=== PATIENT | male | born 1985 | race Hispanic/Latino ===

== ENCOUNTER 2017-08-21 22:58 | Emergency (ER) | payer OTHER ==
[2017-08-21 23:19] VITALS: BP 145/88; PULSE 86; RESP 17; TEMP 97.6; O2SAT 95
[2017-08-22] MEDS ORDERED: Lidocaine 2% Inj (20ml) ONE (02:21)
[2017-08-22] MEDS ORDERED: Lidocaine 2% Inj (20ml) INFIL ONE (02:21)
--- NOTE | 2017-08-22 02:40 | ED PDOC ---
Upper Extremity Pain/Injury Time Seen by Provider: 08/22/17 02:37 Chief Complaint (Nursing): Finger,Hand,&Wrist Chief Complaint (Provider): finger laceration History Per: Patient (32 y/o male here with laceration left index finger that occurred with serrated knife. Notes moderate pain but bleeding stopped 2 hours after injury. Tetanus up to date 8 months ago. Patient is right hand dominant.) Past Medical History Reviewed: Historical Data, Nursing Documentation, Vital Signs Vital Signs: Last Vital Signs Temp 97.6 F 08/21/17 23:14 Pulse 86 08/21/17 23:14 Resp 17 08/21/17 23:14 BP 145/88 08/21/17 23:14 Pulse Ox 95 08/21/17 23:14 - Family History Family History: States: No Known Family Hx - Allergies Allergies/Adverse Reactions: Allergies Allergy/AdvReac Type Severity Reaction Status Date / Time No Known Allergies Allergy Verified 08/21/17 23:19 Review of Systems ROS Statement: Except As Marked, All Systems Reviewed And Found Negative Physical Exam - Reviewed Nursing Documentation Reviewed: Yes Vital Signs Reviewed: Yes - Physical Exam Appears: Positive for: Well, Non-toxic, No Acute Distress Head Exam: Positive for: ATRAUMATIC, NORMAL INSPECTION, NORMOCEPHALIC Skin: Positive for: Normal Color, Warm, DRY Eye Exam: Positive for: EOMI, Normal appearance, PERRL ENT: Positive for: Normal ENT Inspection Neck: Positive for: Normal, Painless ROM Cardiovascular/Chest: Positive for: Regular Rate, Rhythm Respiratory: Positive for: CNT, Normal Breath Sounds Gastrointestinal/Abdominal: Positive for: Normal Exam, Soft Back: Positive for: Normal Inspection Extremity: Positive for: Normal ROM, Other (1.5 cm laceration superficial noted volar surface distal tip of index finger left hand.) Neurologic/Psych: Positive for: Alert, Oriented - ECG O2 Sat by Pulse Oximetry: 95 - Progress ED Course And Treament: Laceration appears mostly superficial and no bleeding noted in ED. Disposition - Clinical Impression Clinical Impression: Finger laceration - Patient ED Disposition Is Patient to be Admitted: No - Disposition Disposition: Routine/Home Disposition Time: 02:42 Condition: FAIR Instructions: Wound Care (DC) Procedure: Wound Repair - Time Performed Time Performed: 02:41 - Time Out Time Out: Site verified - Indications Indication(s):: Laceration - Location Location:: Left, Hand Finger:: Index Shape:: Linear Dimensions Length cm: 1.5cm - Wound repair method Lamar:: Steri-strips (three steri-strips) - Patient tolerated procedure Patient Tolerated Procedure:: With Difficulty
== END 2017-08-22 03:00 | disposition home or self-care (01) ==
LOC: H.ER 22:58
DX: S61.201A Unspecified open wound of left index finger without damage to nail, initial encounter (principal); W26.0XXA Contact with knife, initial encounter; Y92.89 Other specified places as the place of occurrence of the external cause